=== PATIENT | male | born 2000 | race Caucasian/White ===

== ENCOUNTER 2024-12-11 23:01 | Emergency (ER) | payer BC, SELFPAY ==
[2024-12-11 23:12] VITALS: BP 122/60; PULSE 54; RESP 16; TEMP 36.7; O2SAT 100; BMI 22.2
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
[2024-12-12 02:52] VITALS: BP 00/00; PULSE 0; RESP 0; TEMP -17.7; TEMP 0
== END 2024-12-12 02:52 | disposition home or self-care (01) ==
PROVIDERS: Emergency Provider Emergency Medicine
DX: S69.82XA Other specified injuries of left wrist, hand and finger(s), initial encounter (principal); W50.0XXA Accidental hit or strike by another person, initial encounter; M79.645 Pain in left finger(s); Y93.9 Activity, unspecified; Y92.9 Unspecified place or not applicable; Y99.9 Unspecified external cause status
CPT/HCPCS: 99282